=== PATIENT | male | born 1955 | race Caucasian/White ===

== ENCOUNTER 2016-12-02 15:00 | Emergency (ER) | payer MEDICAID, OTHER ==
[~2016-12-02] VITALS: Ht 165.1 cm; Wt 74.0 kg
[2016-12-02 15:03] VITALS: Ht 165.1 cm; Wt 74.0 kg
[2016-12-02] MEDS ORDERED: HYDROCODONE/APAP (5/325) TAB PO ONE (16:00)
--- NOTE | 2016-12-02 16:58 | RADRPT ---
PROCEDURE: XR left toes. CLINICAL INDICATION: Left fifth toe pain. TECHNIQUE: 3 views of the left toes are available for review COMPARISON: No prior studies are available for comparison. FINDINGS: There is no bleed mildly angulated fracture of the fifth proximal phalanx. There is no evidence of dislocation. No other fractures are seen. Soft tissues are within normal limits.. IMPRESSION: 1. Oblique angulated fracture of the fifth proximal phalanx.. RPTAT: HJPL .Uziel Michaud MD, Date Time Electronically viewed and signed by .Uziel Michaud MD, on 12/02/2016 16:57 .L/
[2016-12-02] MEDS ORDERED: LIDOCAINE 1% (MDV) 20 ML INJ SC ONE (17:00)
[2016-12-02] MEDS ORDERED: ACET1TAB40 PO (17:49)
--- NOTE | 2016-12-02 17:49 | ERD ---
ER Documentation Chief Complaint Date/Time DATE: 12/02/16 TIME: 17:30 Chief Complaint LEFT 5TH TOE PAIN DUE TO INJURY HPI 61-year-old male presents with left fifth toe deformity and mild pain after kicking a rock today. It is no bleeding or lacerations or weakness or numbness. Denies any other injury ROS All systems reviewed and are negative except as per history of present illness. Allergies Allergies: Coded Allergies: aspirin (Verified Allergy, 07/24/12) ibuprofen (Verified Allergy, 07/24/12) PMhx/Soc History of Surgery: No Anesthesia Reaction: No Hx Neurological Disorder: No Hx Respiratory Disorders: No Hx Cardiac Disorders: Yes (HTN) Hx Psychiatric Problems: No Hx Miscellaneous Medical Probl: No Hx Alcohol Use: No Hx Substance Use: No Hx Tobacco Use: No Smoking Status: Never smoker Physical Exam Vitals Vital Signs Date Time Temp Pulse Resp B/P Pulse Ox O2 Delivery O2 Flow Rate FiO2 12/02/16 15:03 98.1 60 18 209/93 97 Physical Exam Const: [], [id number] Head: Atraumatic Eyes: Normal Conjunctiva ENT: Normal External Ears, Nose and Mouth. Neck: Full range of motion..~ No meningismus. Resp: Clear to auscultation bilaterally Cardio: Regular rate and rhythm, no murmurs Abd: Soft, non tender, non distended. Normal bowel sounds Skin: No petechiae or rashes Back: No midline or flank tenderness Ext: No cyanosis, or edema. There is lateral deviation of the fifth toe. There is no erythema, discharge and cap refill is less than 2 seconds. There is some tenderness of the digit proximally. Neur: Awake and alert Psych: Normal Mood and Affect Results 24 hrs Current Medications Medications (Trade) Dose Ordered Sig/Claudia Route PRN Reason Start Time Stop Time Status Last Admin Dose Admin Acetaminophen/ Hydrocodone Bitart ([place] (5/325)) 1 tab ONCE ONCE PO 12/02/16 16:00 12/02/16 16:01 DC 12/02/16 16:42 Lidocaine (Xylocaine 1% (Mdv) 20 ml) 20 ml ONCE ONCE SC 12/02/16 17:00 12/02/16 17:01 DC Procedures/MDM X-ray left fifth toe 2V Interpreted by me: Bones: There is no oblique fracture of the proximal left fifth toe per Joints: [No dislocation] Foreign body: [None] impression-angulated laterally proximal fifth toe fracture Procedure note-left fifth toe was prepped with Betadine. 1 cc of lidocaine was used to perform a digital block. Retraction the toe was reduced to satisfactory alignment clinically. Left fifth toe was valerio taped to the fourth toe. X-ray left fifth postreduction toe 2V Interpreted by me: Bones: Improved fracture alignment Joints: [No dislocation] Foreign body: [None]. Impression-improved fracture alignment of the proximal left fifth toe Patient was discharged home the prescription Tylenol and instructions for primary care and orthopedic follow-up within the next week. He should return sooner for fevers, redness, new symptoms. ELVIN BOLTON MD Dec 02, 2016 17:48
--- NOTE | 2016-12-02 18:06 | RADRPT ---
PROCEDURE: XR left toes. CLINICAL INDICATION: Reduction of fifth toe fracture. TECHNIQUE: 3 views of the left toes are available for review COMPARISON: 04:42 p.m. FINDINGS: Status post reduction of the left fifth proximal phalanx fracture now appearing nondisplaced. Remai nder of the bones appear intact. No evidence of dislocation.. IMPRESSION: 1. Status post reduction of left fifth proximal phalanx fracture.. RPTAT: HJPL .Uziel Michaud MD, Date Time Electronically viewed and signed by .Uziel Michaud MD, MD on 12/02/2016 18:06 .L/
--- NOTE | 2016-12-05 11:14 | ERD ---
ER Documentation Chief Complaint Date/Time DATE: 12/05/16 TIME: 11:12 Chief Complaint LEFT 5TH TOE PAIN DUE TO INJURY ROS All systems reviewed and are negative except as per history of present illness. Medications Home Meds Active Scripts Acetaminophen with Codeine (Acetaminophen-Cod #3 Tablet) 1 Each Tablet, 1 TAB PO Q6H Y for PAIN, #12 TAB Prov:ELVIN BOLTON MD 12/02/16 Allergies Allergies: Coded Allergies: aspirin (Verified Allergy, 07/24/12) ibuprofen (Verified Allergy, 07/24/12) PMhx/Soc History of Surgery: No Anesthesia Reaction: No Hx Neurological Disorder: No Hx Respiratory Disorders: No Hx Cardiac Disorders: Yes (HTN) Hx Psychiatric Problems: No Hx Miscellaneous Medical Probl: No Hx Alcohol Use: No Hx Substance Use: No Hx Tobacco Use: No Smoking Status: Never smoker Physical Exam Vitals Vital Signs Date Time Temp Pulse Resp B/P Pulse Ox O2 Delivery O2 Flow Rate FiO2 12/02/16 15:03 98.1 60 18 209/93 97 Physical Exam Const: [] Head: Atraumatic Eyes: Normal Conjunctiva ENT: Normal External Ears, Nose and Mouth. Neck: Full range of motion..~ No meningismus. Resp: Clear to auscultation bilaterally Cardio: Regular rate and rhythm, no murmurs Abd: Soft, non tender, non distended. Normal bowel sounds Skin: No petechiae or rashes Back: No midline or flank tenderness Ext: No cyanosis, or edema Neur: Awake and alert Psych: Normal Mood and Affect Results 24 hrs Current Medications Medications (Trade) Dose Ordered Sig/Claudia Route PRN Reason Start Time Stop Time Status Last Admin Dose Admin Acetaminophen/ Hydrocodone Bitart ([place] (5/325)) 1 tab ONCE ONCE PO 12/02/16 16:00 12/02/16 16:01 DC 12/02/16 16:42 Lidocaine (Xylocaine 1% (Mdv) 20 ml) 20 ml ONCE ONCE SC 12/02/16 17:00 12/02/16 17:01 DC Procedures/MDM Patient presents with clinical signs and symptoms of an angulated left fifth toe fracture. X-ray left fifth toe 2V Interpreted by me: Bones: There is a laterally angulated proximal left fifth toe fracture Joints: [No dislocation] Foreign body: [None]. Impression-angulated left fifth toe fracture Procedure note-left fifth toe was prepped with Betadine. 1 cc lidocaine was used to perform a digital block. Left fifth toe was reduced via traction manually to clinical satisfaction and valerio taped. Patient is nervous intact after the valerio tape. X-ray left fifth toe 2V Interpreted by me: Bones: Improved alignment of left fifth proximal toe fracture Joints: [No dislocation] Foreign body: [None]. Impression-improved alignment status post reduction of left fifth toe fracture Patient was discharged home with instructions for orthopedic and primary care follow-up within the next week. There is no evidence to suggest bacterial infection, ischemia, deficits. Departure Diagnosis: Primary Impression: Toe fracture, left Encounter type: initial encounter Toe: unspecified toe Fracture type: closed Fracture alignment: displaced Qualified Code: S92.912A - Closed displaced fracture of phalanx of toe of left foot, unspecified toe, initial encounter Condition: Stable Patient Instructions: Finger and Toe Fractures (Broken Finger or Toe) Referrals: ARTURO DE SOUZA MD Additional Instructions: Follow-up with primary doctor and orthopedist within the next week. Recheck sooner for fevers, redness, new symptoms. Cheque otro vez con sexton doctor primario en el proximo arango or regresa para mas o nueva simptomas. Va al sexton doctor/ specialista para mas evaluacon en el proximo semana. posiblemente necesita autorizado de sexton doctor primario para specialista. Regresa para fiebre, o mas o nueva simptomas. ELVIN BOLTON MD Dec 05, 2016 11:14
== END 2016-12-02 18:18 | disposition home or self-care (01) ==
LOC: FTE 15:00
DX: S99.922A Unspecified injury of left foot, initial encounter (principal); I10 Essential (primary) hypertension; W22.8XXA Striking against or struck by other objects, initial encounter; Y92.9 Unspecified place or not applicable
CPT/HCPCS: 73660; Z7502; Z7610; 99283